=== PATIENT | male | born 1995 | race Hispanic/Latino ===

== ENCOUNTER 2017-05-11 20:34 | Emergency (ER) | payer SELFPAY ==
[2017-05-11 21:42] LABS: BASOPHILS % (AUTO) 0.3 % (0.0-5.0); EOSINOPHILS % (AUTO) 0.1 % (0.0-8.0); HEMATOCRIT 46.3 % (42-54); LYMPHOCYTES % (AUTO) 13.1 % (21.0-51.0); MEAN CORPUSCULAR HEMOGLOBIN 31.7 pg (27.0-33.0); MEAN CORPUSCULAR HGB CONC 34.1 g/dL (32.0-36.0); MEAN CORPUSCULAR VOLUME 92.8 fL (79-99); MONOCYTES % (AUTO) 5.6 % (3.0-13.0); NEUTROPHILS % (AUTO) 80.9 % (40.0-77.0); PLATELET COUNT (AUTO) 242 K/uL (130-400); RED BLOOD CELL COUNT(AUTO) 4.99 MIL/uL (4.50-6.20)
[2017-05-11 21:54] LABS: CREATININE 0.9 mg/dL (0.5-1.5); POTASSIUM 3.7 mmol/L (3.5-5.1)
[2017-05-11 21:58] LABS: BILIRUBIN,URINE Negative (NEGATIVE); COLOR,URINE Yellow (YELLOW); GLUCOSE, URINE (UA) Negative (NEGATIVE); KETONES,URINE 15 mg/dL (NEGATIVE); LEUKOCYTE ESTERASE ,URINE Negative (NEGATIVE); NITRATE,URINE Negative (NEGATIVE); OCCULT BLOOD,URINE Negative (NEGATIVE); PROTEIN,URINE Negative (NEGATIVE)
[2017-05-11 21:58] LABS: ALBUMIN 4.6 g/dL (3.5-5.0); BILIRUBIN,TOTAL 0.3 mg/dL (0.2-1.0); TOTAL PROTEIN, SERUM 8.5 g/dL (6.0-8.3)
[2017-05-11 22:00] LABS: APPEARANCE,URINE CLEAR (CLEAR)
[2017-05-11] MEDS ORDERED: IOPAMIDOL-370 75 ML VIAL IV ONE (22:21)
== END 2017-05-11 23:42 | disposition home or self-care (01) ==
LOC: EDH 20:34
DX: R10.31 Right lower quadrant pain (principal); F90.9 Attention-deficit hyperactivity disorder, unspecified type; Z88.0 Allergy status to penicillin; Z91.048 Other nonmedicinal substance allergy status; Z72.0 Tobacco use
CPT/HCPCS: 36415; 74177; 80053; 81003; 83690; 85025; 99285; Q9967

== ENCOUNTER 2017-11-16 08:51 | Emergency (ER) | payer SELFPAY ==
[2017-11-16 09:47] LABS: RAPID GROUP A STREP NEGATIVE (NEGATIVE)
[2017-11-16] MEDS ORDERED: ONDANSETRON ODT 4 MG TAB ONE (09:56)
== END 2017-11-16 10:51 | disposition home or self-care (01) ==
LOC: EDH 08:51
DX: A08.4 Viral intestinal infection, unspecified (principal); Z88.0 Allergy status to penicillin; Z91.048 Other nonmedicinal substance allergy status
CPT/HCPCS: 71046; 87804; 87880

== ENCOUNTER 2018-08-26 16:57 | Emergency (ER) | payer OTHER ==
[2018-08-26] MEDS ORDERED: SODIUM CHLORIDE 0.9% 1000ML 1,000 ML IV ONE (17:24)
[2018-08-26] MEDS ORDERED: ONDANSETRON HCL 4 MG/2 ML VIAL ONE (17:24)
[2018-08-26] MEDS ORDERED: MORPHINE SULFATE 2 MG/ML 1ML SYG ONE (17:25)
[2018-08-26 17:30] LABS: BASOPHILS % (AUTO) 0.3 % (0.0-5.0); EOSINOPHILS % (AUTO) 0.1 % (0.0-8.0); LYMPHOCYTES % (AUTO) 15.8 % (21.0-51.0); MEAN CORPUSCULAR HEMOGLOBIN 32.9 pg (27.0-33.0); MEAN CORPUSCULAR HGB CONC 34.7 g/dL (32.0-36.0); MONOCYTES % (AUTO) 8.2 % (3.0-13.0); NEUTROPHILS % (AUTO) 75.6 % (40.0-77.0); NUCLEATED RED BLOOD CELLS 0.1 % (0.0-0.19); PLATELET COUNT (AUTO) 208 K/uL (130-400); RED BLOOD CELL COUNT(AUTO) 4.84 MIL/uL (4.50-6.20); RED CELL DISTRIBUTION WIDTH 13.2 % (11.0-15.5); WHITE BLOOD COUNT (AUTO) 12.1 K/uL (4.8-10.8)
[2018-08-26 17:40] LABS: POTASSIUM 3.8 mmol/L (3.5-5.1)
[2018-08-26 17:43] LABS: APPEARANCE,URINE Clear (CLEAR); BILIRUBIN,URINE Negative (NEGATIVE); COLOR,URINE Yellow (YELLOW); GLUCOSE, URINE (UA) Negative (NEGATIVE); KETONES,URINE 40 mg/dL (NEGATIVE); LEUKOCYTE ESTERASE ,URINE Small (NEGATIVE); NITRATE,URINE Negative (NEGATIVE); OCCULT BLOOD,URINE Negative (NEGATIVE); PROTEIN,URINE Negative (NEGATIVE)
[2018-08-26 17:44] LABS: ALBUMIN 4.4 g/dL (3.5-5.0); BILIRUBIN,TOTAL 0.7 mg/dL (0.2-1.0); TOTAL PROTEIN, SERUM 7.6 g/dL (6.0-8.3)
[2018-08-26] MEDS ORDERED: IOHEXOL-350 75 ML VIAL IV ONE (17:47)
[2018-08-26 17:59] LABS: BACTERIA,URINE Few /HPF (None Seen); MUCUS,URINE Few LPF (None Seen); RBC,URINE 0-1 /HPF (0-1); SQUAMOUS EPITHELIAL CELL,UR Rare /HPF (0-2)
== END 2018-08-26 18:59 ==
LOC: EDH 16:57
DX: G89.29 Other chronic pain (principal); R10.31 Right lower quadrant pain; F90.9 Attention-deficit hyperactivity disorder, unspecified type; K59.00 Constipation, unspecified; Z88.0 Allergy status to penicillin; Z72.0 Tobacco use; Z91.048 Other nonmedicinal substance allergy status
CPT/HCPCS: 36415; 74177; 80053; 81001; 85025; 93005; 96374; 96375; 99285; J2405; J7030; Q9967

== ENCOUNTER 2019-03-24 22:00 | Inpatient (IN) | payer OTHER ==
[~2019-03-24] VITALS: Ht 162.6 cm; Wt 55.4 kg
[2019-03-24] MEDS ORDERED: MORPHINE SULFATE 4 MG/1ML SYG ONE (22:44)
[2019-03-24] MEDS ORDERED: ONDANSETRON HCL 4 MG/2 ML VIAL ONE (22:44)
[2019-03-24] MEDS ORDERED: SODIUM CHLORIDE 0.9% 1000ML 1,000 ML IV ONE (22:45)
[2019-03-24 22:46] LABS: BASOPHILS % (AUTO) 0.3 % (0.0-5.0); EOSINOPHILS % (AUTO) 1.4 % (0.0-8.0); HEMATOCRIT 45.7 % (42-54); LYMPHOCYTES % (AUTO) 24.3 % (21.0-51.0); MEAN CORPUSCULAR HEMOGLOBIN 30.7 pg (27.0-33.0); MEAN CORPUSCULAR HGB CONC 34.4 g/dL (32.0-36.0); MEAN CORPUSCULAR VOLUME 89.3 fL (79-99); MONOCYTES % (AUTO) 10.4 % (3.0-13.0); NEUTROPHILS % (AUTO) 63.1 % (40.0-77.0); PLATELET COUNT (AUTO) 405 K/uL (130-400); RED BLOOD CELL COUNT(AUTO) 5.12 MIL/uL (4.50-6.20); RED CELL DISTRIBUTION WIDTH 14.1 % (11.0-15.5); WHITE BLOOD COUNT (AUTO) 10.9 K/uL (4.8-10.8)
[2019-03-24 22:55] LABS: CREATININE 0.9 mg/dL (0.5-1.5); POTASSIUM 3.9 mmol/L (3.5-5.1)
[2019-03-24 22:58] LABS: INR 1.08 (0.85-1.15); PARTIAL THROMBOPLASTIN TIME 31.3 SEC (26.3-35.5); PROTHROMBIN TIME 11.3 SEC (9.6-11.6)
[2019-03-24 23:00] LABS: ALBUMIN 3.9 g/dL (3.5-5.0); BILIRUBIN,TOTAL 0.5 mg/dL (0.2-1.0); TOTAL PROTEIN, SERUM 8.2 g/dL (6.0-8.3)
[2019-03-24 23:42] LABS: APPEARANCE,URINE Cloudy (CLEAR); BILIRUBIN,URINE Small (NEGATIVE); COLOR,URINE Dark Yellow (YELLOW); GLUCOSE, URINE (UA) Negative (NEGATIVE); KETONES,URINE Negative (NEGATIVE); LEUKOCYTE ESTERASE ,URINE Negative (NEGATIVE); NITRATE,URINE Negative (NEGATIVE); OCCULT BLOOD,URINE Moderate (NEGATIVE); PH,URINE 7.5 (5.0-8.0); PROTEIN,URINE >=1000 mg/dL (NEGATIVE); UROBILINOGEN,URINE 0.2 mg/dL (0.2-1.0)
[2019-03-24 23:53] LABS: BACTERIA,URINE None Seen /HPF (None Seen); RBC,URINE 26-50 /HPF (0-1); SQUAMOUS EPITHELIAL CELL,UR Rare /HPF (0-2); YEAST,URINE BUDDING None Seen /HPF (None Seen)
[2019-03-25] MEDS ORDERED: ACETAMINOPHEN 325 MG TAB PO PRN (00:30)
[2019-03-25] MEDS ORDERED: HYDROCODONE/ACETAMINOPHEN 10/325 MG TAB PO PRN (00:30)
[2019-03-25] MEDS ORDERED: KETOROLAC TROMETHAMINE 15MG/ML IM PRN (00:30)
[2019-03-25] MEDS ORDERED: ONDANSETRON HCL 4 MG/2 ML VIAL IVP PRN (00:30)
[2019-03-25] MEDS ORDERED: MORPHINE SULFATE 2 MG/ML 1ML SYG ONE ×3 (04:40→19:51)
[2019-03-25] MEDS ORDERED: SODIUM CHLORIDE 0.9% 1000ML 1,000 ML IV ONE (04:41)
[2019-03-25] MEDS ORDERED: HYDROCODONE/ACETAMINOPHEN 10/325 MG TAB ONE (07:50)
[2019-03-25] MEDS: SODIUM CHLORIDE 0.9% 1000ML 1,000 ML IV SCH (10:00)
--- NOTE | 2019-03-25 10:01 | NUR ---
WHEN TURN HEAD NECK LIKE IT GOING TO STICK Addendum: 03/25/19 at 1025 by ANT BRITO RN RN Amended: Links added.
[2019-03-25] MEDS ORDERED: ONDANSETRON HCL 4 MG/2 ML VIAL ONE (10:34)
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
[2019-03-25 16:00] LABS: AMPHET/METH SCREEN,URINE NEGATIVE (NEGATIVE); BARBITURATE SCREEN, URINE NEGATIVE (NEGATIVE); BENZODIAZEPINES SCREEN,URINE NEGATIVE (NEGATIVE); CANNABINOID SCREEN,URINE NEGATIVE (NEGATIVE); COCAINE SCREEN,URINE NEGATIVE (NEGATIVE); OPIATE SCREEN,URINE NEGATIVE (NEGATIVE); PHENCYCLIDINE SCREEN,URINE NEGATIVE (NEGATIVE)
[2019-03-25 23:04] VITALS: BP 106/61
[2019-03-26] MEDS: SODIUM CHLORIDE 0.9% 1000ML 1,000 ML IV SCH ×2 (02:49→10:16)
[2019-03-26 04:00] VITALS: BP 106/57
[2019-03-26 08:00] VITALS: BP 91/50
[2019-03-26] MEDS: MORPHINE SULFATE 2 MG/ML 1ML SYG IVP PRN ×2 (10:13→14:47)
[2019-03-26 11:43] VITALS: BP 126/72
[2019-03-26 13:02] LABS: HEMATOCRIT 41.2 % (42-54); MEAN CORPUSCULAR HEMOGLOBIN 30.8 pg (27.0-33.0); MEAN CORPUSCULAR VOLUME 90.5 fL (79-99); PLATELET COUNT (AUTO) 313 K/uL (130-400); RED BLOOD CELL COUNT(AUTO) 4.55 MIL/uL (4.50-6.20); WHITE BLOOD COUNT (AUTO) 9.3 K/uL (4.8-10.8)
[2019-03-26 13:15] LABS: ALBUMIN 3.4 g/dL (3.5-5.0); BILIRUBIN,TOTAL 0.4 mg/dL (0.2-1.0); CREATININE 0.8 mg/dL (0.5-1.5); POTASSIUM 4.2 mmol/L (3.5-5.1); TOTAL PROTEIN, SERUM 6.9 g/dL (6.0-8.3)
[2019-03-26] MEDS ORDERED: CEPH250T PO ×2 (13:34→13:37)
--- NOTE | 2019-03-26 13:50 | NUR ---
DISCHARGE ON HOLD PATIENT PIGTAIL CHEST TUBE HAS TO BE REMOVED BY IR. DR. GIMENEZ NOTIFIED OF THIS AND THAT PROCEDURE MAY NOT BE DONE TODAY SINCE PATIENT IS ASYMPTOMATIC. MD REPLIED TO HOLD DISCHARGE TO HAVE INTERVENTIONAL RADIOLOGY EVALUATE PATIENT FOR REMOVAL OF LEFT SIDED PIGTAIL CHEST TUBE.
--- NOTE | 2019-03-26 14:00 | NUR ---
PATIENT AWARE PATIENT NOTIFIED THAT CHEST TUBE HAD TO BE REMOVED BY INTERVENTIONAL RADIOLOGY AND PROCEDURE MAY NOT BE ABLE TO BE PERFORMED UNTIL TOMORROW. PATIENT DID NOT SEEM HAPPY WITH THIS, BUT DECIDED TO STAY IN HOSPITAL FOR NOW.
[2019-03-26 16:00] VITALS: BP 116/75
[2019-03-26 19:07] VITALS: BP 97/48
[2019-03-26 23:18] VITALS: BP 114/61
[2019-03-27] MEDS: MORPHINE SULFATE 2 MG/ML 1ML SYG IVP PRN ×2 (00:11→07:59)
[2019-03-27 03:25] VITALS: BP 109/56
[2019-03-27 05:22] LABS: BASOPHILS % (AUTO) 0.5 % (0.0-5.0); EOSINOPHILS % (AUTO) 1.4 % (0.0-8.0); HEMATOCRIT 42.5 % (42-54); LYMPHOCYTES % (AUTO) 30.5 % (21.0-51.0); MEAN CORPUSCULAR HEMOGLOBIN 30.9 pg (27.0-33.0); MEAN CORPUSCULAR HGB CONC 34.1 g/dL (32.0-36.0); MEAN CORPUSCULAR VOLUME 90.4 fL (79-99); NEUTROPHILS % (AUTO) 57.4 % (40.0-77.0); PLATELET COUNT (AUTO) 304 K/uL (130-400); WHITE BLOOD COUNT (AUTO) 8.4 K/uL (4.8-10.8)
[2019-03-27 05:41] LABS: ALBUMIN 3.7 g/dL (3.5-5.0); BILIRUBIN,TOTAL 0.6 mg/dL (0.2-1.0); CREATININE 0.8 mg/dL (0.5-1.5); POTASSIUM 4.1 mmol/L (3.5-5.1); TOTAL PROTEIN, SERUM 7.3 g/dL (6.0-8.3)
[2019-03-27 07:00] LABS: INR 1.09 (0.85-1.15); PARTIAL THROMBOPLASTIN TIME 29.6 SEC (26.3-35.5); PROTHROMBIN TIME 11.4 SEC (9.6-11.6)
--- NOTE | 2019-03-27 09:02 | NUR ---
Angel from interventional radiology dep. came to see patient and he stated the chest tube the patient has inplace is not one that his dep. is familar with; he called the radiologist on the phone and the radiologist said it was not something he was going to remove; i will inform md of this.
--- NOTE | 2019-03-27 09:08 | NUR ---
CALL TO [facility] T/C PLACE TO [facility] [employer]PER[employer] FOR HOSPITALIST, INFORMED RADIOLOGY WILL NOT BE ABLE TO REMOVE CHEST TUBE, SAID TO CALL [facility] AND INFORM THEM AND MAYBE THEY CAN REMOVE CHEST TUBE, ORDERS RECEIVED FOR REPEAT CXR
--- NOTE | 2019-03-27 09:17 | NUR ---
CALL TO [facility] T/C PLACED TO [facility], SPOKE WITH ENOCH ROSARIO, INFORMED PT'S STATUS. STATES THEY SAW PT IN ER AND GAVE RECOMMENDATIONS TO REMOVE CHEST TUBE AND SIGNED OFF BUT WILL CALL ME BACK WITH MD'S RESPONSE REGARDING CHEST TUBE REMOVAL.
--- NOTE | 2019-03-27 09:31 | NUR ---
PROCEDURE PATIENT SCHEDULED FOR LT CHEST TUBE REMOVAL. CHEST TUBE PLACED AT OTHER FACILITY AND REQUESTED FOR IR TO REMOVE. SAW PATIENT AT BEDSIDE AND ASSESSED LT CHEST TUBE. NOT FAMILIAR WITH THE TYPE OF CHEST TUBE AND INFORMED DR Kenny VILLANUEVA AND AND DR Ashleigh SANCHEZ OF PROCEDURE. SINCE THE CHEST TUBE WAS NOT PLACED BY A RADIOLOGIST AND IT IS A DIFFERENT TYPE OF CHEST TUBE, THEY WILL NOT REMOVED CHEST TUBE. PROCEDURE OUTCOME REPORTED TO Shaheen AVILA, GRASS CUTTER AND Karissa HERNANDEZ, RN
--- NOTE | 2019-03-27 09:47 | NUR ---
CALL BACK FROM [facility] T/C FROM [facility] FOR [facility], SAID SPOKE WITH DR.J. MORENO AND SAID TO ASK 2ND FLOOR NURSE TO REMOVED CHEST TUBE. AT THIS TIME JD BALES CALLED AND INFORMED BY PRIMARY NURSE, NORMAN.
[2019-03-27 12:42] VITALS: BP 112/67
--- NOTE | 2019-03-27 17:12 | NUR ---
pt stated understanding of all d/c instructions on after care after a chest tube is removed; post chest xray is wnl. iv access removed. pt's mother here to take him home
== END 2019-03-27 17:30 | disposition home or self-care (01) | DRG 200 ==
LOC: EDH 22:00 → EDHIP 22:01 → OBSVTOIN 22:01 → 4AH 03-25 22:51
PROVIDERS: ADMIT Family Medicine; ATTEND Family Medicine
DX: S27.0XXA Traumatic pneumothorax, initial encounter (principal); S22.32XA Fracture of one rib, left side, initial encounter for closed fracture; E46 Unspecified protein-calorie malnutrition; F12.90 Cannabis use, unspecified, uncomplicated; F14.90 Cocaine use, unspecified, uncomplicated; Z68.21 Body mass index [BMI] 21.0-21.9, adult; Y93.89 Activity, other specified; Y92.89 Other specified places as the place of occurrence of the external cause; Y99.8 Other external cause status; Z72.0 Tobacco use; Z88.0 Allergy status to penicillin; Z88.8 Allergy status to other drugs, medicaments and biological substances
CPT/HCPCS: 36415; 71045; 80053; 80305; 80307; 81001; 82550; 83605; 83690; 85025; 85027; 85610; 85730; 87040; G0378; G0480; G0481; J1885; J2270; J2405; J7030

== ENCOUNTER 2020-06-01 20:36 | Emergency (ER) | payer OTHER, SELFPAY ==
[2020-06-01] MEDS ORDERED: ACETAMINOPHEN 500 MG TABLET ONE (20:45)
[2020-06-01] MEDS ORDERED: IBUPROFEN 200 MG TAB ONE (20:45)
[2020-06-01] MEDS ORDERED: ORPHENADRINE CITRATE 30 MG/ML ML ONE (23:08)
[2020-06-01] MEDS ORDERED: KETOROLAC 30MG VIAL (30MG/ML) ONE (23:08)
== END 2020-06-01 23:30 ==
LOC: EEVIPCON 20:36 → EDH 20:36
DX: S29.011A Strain of muscle and tendon of front wall of thorax, initial encounter (principal); R07.89 Other chest pain; J45.909 Unspecified asthma, uncomplicated; F90.9 Attention-deficit hyperactivity disorder, unspecified type; Z88.0 Allergy status to penicillin; Z88.9 Allergy status to unspecified drugs, medicaments and biological substances; Z72.0 Tobacco use; X58.XXXA Exposure to other specified factors, initial encounter; Y93.89 Activity, other specified; Y92.89 Other specified places as the place of occurrence of the external cause; Y99.8 Other external cause status; Z20.822 Contact with and (suspected) exposure to COVID-19
CPT/HCPCS: 71045; 87426; 96374; 96375; 99284; J1885; J2360; U0003

== ENCOUNTER 2021-02-09 11:37 | Emergency (ER) | payer OTHER, SELFPAY ==
[~2021-02-09] VITALS: Ht 162.6 cm; Wt 61.2 kg
[2021-02-09 11:45] VITALS: BP 109/68
[2021-02-09] MEDS ORDERED: ACETAMINOPHEN WITH CODEINE 1 TAB TAB PO ONE (12:30)
== END 2021-02-09 12:44 | disposition left against medical advice (07) ==
LOC: EDH 11:37
DX: J06.9 Acute upper respiratory infection, unspecified (principal); Z20.822 Contact with and (suspected) exposure to COVID-19; F17.200 Nicotine dependence, unspecified, uncomplicated; Z88.0 Allergy status to penicillin
CPT/HCPCS: 87635; 87804 ×2; 87880; 99283; C9803

== ENCOUNTER 2023-12-12 13:42 | Emergency (ER) | payer BC ==
[~2023-12-12] VITALS: Ht 162.6 cm; Wt 61.2 kg
[2023-12-12] MEDS: ketOROlac 15MG/ML VIAL (15MG/ML) IM STA (14:34)
[2023-12-12 15:26] VITALS: BP 131/56; PULSE 78; RESP 20; TEMP 98.8; O2SAT 98
== END 2023-12-12 15:34 ==
LOC: EDH 13:42 → EEVIPCON 13:42 → EDH 15:34
DX: S20.212A Contusion of left front wall of thorax, initial encounter (principal); F17.200 Nicotine dependence, unspecified, uncomplicated; Z88.0 Allergy status to penicillin; X58.XXXA Exposure to other specified factors, initial encounter; Y93.89 Activity, other specified; Y92.89 Other specified places as the place of occurrence of the external cause; Y99.8 Other external cause status
CPT/HCPCS: 99284; 71101; 96372; J1885